=== PATIENT | male | born 1970 | race African-American/Black ===

== ENCOUNTER 2019-01-26 08:46 | Emergency (ER) | payer OTHER ==
[2019-01-26 09:11] VITALS: BP 135/67
--- NOTE | 2019-01-26 09:31 | UC ---
Respiratory Complaint HPI - HPI Summary HPI Summary: 48-year-old male comes in with a chief complaint of wheezing. Patient has a history of asthma. This morning he woke up with wheezing any took his out. Overall which did help. Patient noted that he only had about 10 puffs left his albuterol inhaler. Patient's been looking to establish with a primary care physician and he has an appointment with a new primary care physician in 5 days on January 31, 2019. Patient's concern he'll run out of his albuterol prior to that time. He does use the hand-held inhaler is also use the nebulized solution. No fevers or chills. Does have some environmental allergies with pollen no signs of infection at this time. - History of Current Complaint Chief Complaint: UCMedRefill Stated Complaint: ASTHMA/ALLERGY CONCERN Time Seen by Provider: 01/26/19 09:22 Pain Intensity: 0 - Allergies/Home Medications Allergies/Adverse Reactions: Allergies Allergy/AdvReac Type Severity Reaction Status Date / Time No Known Allergies Allergy Verified 01/26/19 09:06 Home Medications: Home Medications Albuterol 2.5MG/3ML (0.083%)* [Ventolin 2.5 MG/3 ML NEB.BAIRON*] 2.5 mg INH Q6H PRN 01/26/19 [History Confirmed 01/26/19] Albuterol HFA INHALER* [Ventolin HFA Inhaler*] 1 - 2 puff INH Q4H PRN 01/26/19 [ History Confirmed 01/26/19] PMH/Surg Hx/FS Hx/Imm Hx Previously Healthy: Yes Respiratory History: Asthma - Surgical History Surgical History: None - Family History Known Family History: Positive: Non-Contributory - Social History Alcohol Use: Weekly Substance Use Type: None Smoking Status (MU): Former Smoker When Did the Patient Quit Smoking/Using Tobacco: September 2018 Review of Systems All Other Systems Reviewed And Are Negative: Yes Constitutional: Positive: Negative Skin: Positive: Negative Eyes: Positive: Negative ENT: Positive: Negative Respiratory: Positive: Other - SEE HPI Cardiovascular: Positive: Negative Gastrointestinal: Positive: Negative Motor: Positive: Negative Neurovascular: Positive: Negative Musculoskeletal: Positive: Negative Neurological: Positive: Negative Psychological: Positive: Negative Is Patient Immunocompromised?: No Physical Exam Triage Information Reviewed: Yes Appearance: Well-Appearing, No Pain Distress, Well-Nourished Vital Signs: Initial Vital Signs Temp 98.6 F 01/26/19 09:05 Pulse 76 01/26/19 09:05 Resp 16 01/26/19 09:05 BP 135/67 01/26/19 09:05 Pulse Ox 98 01/26/19 09:05 Vital Signs Reviewed: Yes Eye Exam: Normal Eyes: Positive: Conjunctiva Clear ENT Exam: Normal ENT: Negative: Nasal drainage Neck: Positive: Supple Respiratory: Positive: Lungs clear, Normal breath sounds, No respiratory distress Cardiovascular: Positive: RRR Musculoskeletal Exam: Normal Musculoskeletal: Positive: Strength Intact, ROM Intact Neurological Exam: Normal Neurological: Positive: Alert, Muscle Tone Normal Psychological Exam: Normal Psychological: Positive: Age Appropriate Behavior Skin Exam: Normal Respiratory Course/Dx - Differential Dx/Diagnosis Provider Diagnosis: Asthma Discharge - Sign-Out/Discharge Documenting (check all that apply): Patient Departure All imaging exams completed and their final reports reviewed: No Studies - Discharge Plan Condition: Stable Disposition: HOME Prescriptions: Albuterol 2.5MG/3ML (0.083%)* [Ventolin 2.5 MG/3 ML NEB.BAIRON*] 2.5 mg INH Q6H PRN #30 neb.bairon PRN Reason: Wheezing Albuterol HFA INHALER* [Ventolin HFA Inhaler*] 2 puff INH Q4H PRN #1 mdi PRN Reason: Wheezing Patient Education Materials: Asthma (ED) Referrals: [facility] [Outside] Additional Instructions: FOLLOW UP WITH YOUR DOCTOR IF NOT COMPLETELY IMPROVED. GET RECHECKED SOONER IF YOUR CONDITION WORSENS OR ANY QUESTIONS OR CONCERNS. - Billing Disposition and Condition Condition: STABLE Disposition: Home
== END 2019-01-26 09:35 | disposition home or self-care (01) ==
LOC: UCCORT 08:46
DX: J45.909 Unspecified asthma, uncomplicated (principal); Z87.891 Personal history of nicotine dependence
CPT/HCPCS: 99202; G0463

== ENCOUNTER 2019-04-24 12:07 | Emergency (ER) | payer OTHER ==
[2019-04-24 12:25] VITALS: BP 112/87
--- NOTE | 2019-04-24 12:32 | UC ---
General HPI - HPI Summary HPI Summary: PER TRIAGE, Patient is requesting prescriptions for albuterol inhaler and albuterol nebulizer solution. No PCP. Humidity is triggering asthma symptoms. Does not have an albuterol inhaler and has six vials of albuterol nebulizer solution left. [ End ] No fever, cp. + hx asthma. denies asthma symptoms now but the humidity causes occasional flares. - History of Current Complaint Chief Complaint: UCMedRefill Stated Complaint: RX REFILL Time Seen by Provider: 04/24/19 12:21 Hx Obtained From: Patient Pain Intensity: 0 - Allergy/Home Medications Allergies/Adverse Reactions: Allergies Allergy/AdvReac Type Severity Reaction Status Date / Time No Known Allergies Allergy Verified 04/24/19 12:19 PMH/Surg Hx/FS Hx/Imm Hx Respiratory History: Asthma - Surgical History Surgical History: None - Family History Known Family History: Positive: Non-Contributory - Social History Alcohol Use: Weekly Substance Use Type: None Smoking Status (MU): Former Smoker When Did the Patient Quit Smoking/Using Tobacco: September 2018 Review of Systems All Other Systems Reviewed And Are Negative: Yes Constitutional: Negative: Fever, Chills Cardiovascular: Negative: Palpitations, Chest Pain Physical Exam Triage Information Reviewed: Yes Appearance: Well-Appearing Vital Signs: Initial Vital Signs Temp 98.2 F 04/24/19 12:18 Pulse 67 04/24/19 12:18 Resp 16 04/24/19 12:18 BP 112/87 04/24/19 12:18 Pulse Ox 100 04/24/19 12:18 Vital Signs Reviewed: Yes Eyes: Positive: Conjunctiva Clear ENT: Positive: Normal ENT inspection Neck: Positive: Supple Respiratory: Positive: Lungs clear, Normal breath sounds, No respiratory distress Cardiovascular: Positive: RRR, No Murmur Abdomen Description: Positive: Nontender Musculoskeletal: Positive: ROM Intact Neurological: Positive: Alert Psychological: Positive: Age Appropriate Behavior Skin Exam: Normal Course/Dx - Diagnoses Provider Diagnosis: Medication refill Discharge - Sign-Out/Discharge Documenting (check all that apply): Patient Departure All imaging exams completed and their final reports reviewed: No Studies - Discharge Plan Condition: Stable Disposition: HOME Prescriptions: Albuterol 2.5MG/3ML (0.083%)* [Ventolin 2.5 MG/3 ML NEB.BAIRON*] 2.5 mg INH Q6H PRN #1 neb.bairon PRN Reason: Sob/Wheezing Albuterol HFA INHALER* [Ventolin HFA Inhaler*] 2 puff INH Q6H PRN #1 mdi PRN Reason: Sob/Wheezing Patient Education Materials: Asthma (ED) Referrals: Malik He MD [Medical Doctor] - As Soon As Possible Additional Instructions: USE THE INHALER OR NEBULIZER BUT NOT BOTH AT THE SAME TIME. - Billing Disposition and Condition Condition: STABLE Disposition: Home
== END 2019-04-24 12:39 | disposition home or self-care (01) ==
LOC: UCCORT 12:07
DX: J45.909 Unspecified asthma, uncomplicated (principal); Z76.0 Encounter for issue of repeat prescription; Z87.891 Personal history of nicotine dependence
CPT/HCPCS: 99212; G0463